=== PATIENT | male | born 1985 ===

== ENCOUNTER 2017-09-22 23:53 | Emergency (ER) | payer OTHER ==
[2017-09-23 00:19] VITALS: TEMP 98.5; O2SAT 99
--- NOTE | 2017-09-23 00:49 | ED PDOC ---
HPI: Back Time Seen by Provider: 09/23/17 00:27 Chief Complaint (Nursing): Back Pain Chief Complaint (Provider): neck pain History Per: Patient, Rx Specialist (RN ) History/Exam Limitations: no limitations Onset/Duration Of Symptoms: Days (8 months) Exacerbating Factor(s): Turning, Movement Additional Complaint(s): 32 y/o male history of c-spine disc herniations (sustained from injury at work) presents for evaluation of ongoing neck pain. Patient states 3 weeks ago he received cortisone injections in to his neck and feels like it made his pain worse. Patient states he is not sleeping at night due to pain. Patient denies new injury, headache, numbness/weakness of upper extremities. Little relief with Naproxen. Past Medical History Reviewed: Historical Data, Nursing Documentation, Vital Signs Vital Signs: Last Vital Signs Temp 98.5 F 09/23/17 00:11 Pulse 91 H 09/23/17 00:11 Resp 20 09/23/17 00:11 BP 118/77 09/23/17 00:11 Pulse Ox 99 09/23/17 00:11 - Medical History PMH: Back Problems - Surgical History Surgical History: No Surg Hx - Family History Family History: States: No Known Family Hx - Social History Current smoker - smoking cessation education provided: No Alcohol: None Drugs: Denies - Home Medications Home Medications: Ambulatory Orders Medication Instructions Recorded diaZEpam [Valium] 5 mg PO TID PRN #15 tab 09/23/17 - Allergies Allergies/Adverse Reactions: Allergies Allergy/AdvReac Type Severity Reaction Status Date / Time No Known Allergies Allergy Verified 09/23/17 00:11 Review of Systems ROS Statement: Except As Marked, All Systems Reviewed And Found Negative Musculoskeletal: Positive for: Neck Pain Physical Exam - Reviewed Nursing Documentation Reviewed: Yes Vital Signs Reviewed: Yes - Physical Exam Appears: Positive for: Well, Non-toxic, No Acute Distress Head Exam: Positive for: ATRAUMATIC, NORMAL INSPECTION, NORMOCEPHALIC Skin: Positive for: Normal Color Cardiovascular/Chest: Positive for: Regular Rate, Rhythm Respiratory: Positive for: Normal Breath Sounds Back: Positive for: Vertebral Tenderness (lower cspine; no bony deformity), Decreased ROM (limited ROM flexion/extension, rotation of neck secondary to pain ), Muscle Spasm (bilateral cervical paravertebral tenderness). Negative for: L CVA Tenderness, R CVA Tenderness Extremity: Positive for: Normal ROM Neurologic/Psych: Positive for: Alert, Oriented (x3). Negative for: Motor/ Sensory Deficits - ECG O2 Sat by Pulse Oximetry: 99 - Progress ED Course And Treament: Toradol IM, valium PO ordered On re-eval, patient states he is feeling better. Patient educated on findings, discharged with rx valium Advised to continue Naproxen Follow up with dairy specialist (has appt today) advised physical therapy, warm compresses Return precautions given Disposition - Clinical Impression Clinical Impression: Chronic neck pain - Patient ED Disposition Is Patient to be Admitted: No Counseled Patient/Family Regarding: Diagnosis, Need For Followup, Rx Given - Disposition Disposition: Routine/Home Disposition Time: 02:17 Condition: IMPROVED Prescriptions: diaZEpam [Valium] 5 mg PO TID PRN #15 tab PRN Reason: Muscle Spasm Instructions: Neck Pain Print Language: [place]
[2017-09-23 03:08] VITALS: BP 122/70; PULSE 78; RESP 16
== END 2017-09-23 02:20 | disposition home or self-care (01) ==
LOC: H.ER 23:53
DX: M54.2 Cervicalgia (principal); G89.29 Other chronic pain
CPT/HCPCS: 96372; 99283; J1885